=== PATIENT | female | born 1975 | race Caucasian/White ===

== ENCOUNTER 2016-11-19 08:32 | Emergency (ER) | payer MEDICAID ==
[2016-11-19 08:43] VITALS: BP 130/63; PULSE 78; TEMP 98.4; BMI 31.4
--- NOTE | 2016-11-19 08:59 | EDPRACDOC ---
- General Information Chief Complaint: Flu-Like Symptoms Stated Complaint: CONGESTION/ BODY ACHES Time Seen by Provider: 11/19/16 08:48 Information Source: Patient Mode Of Arrival: Car Allergies/Adverse Reactions: Allergies Allergy/AdvReac Type Severity Reaction Status Date / Time No Known Allergies Allergy Verified 11/19/16 08:43 - History of Present Illness Onset: FRIDAY Current Symptoms: Reports: Cough, Nasal Symptoms, Myalgia, Nausea, Vomiting (X1) Shortness of Breath: Mild Cough: Reports: Non-productive Rhinorrhea: Reports: Clear Fever Severity/Quality: Reports: subjective Oral Intake: Decreased Urinary Output: Normal Relevant History of: None Associated Signs & Symptoms:: Reports: Cough, Fever, Nasal Symptoms, Nausea, Vomiting, Myalgia, Other (SINUS PAIN AND PRESSURE). Denies: Diarrhea ED Past Medical History - History Reviewed Yes Nurses notes reviewed and agree except as marked No Past Medical History: Yes Patient has no past medical history - Patient Medical History Surgical History: Reports: Cholecystectomy. Denies: Hysterectomy Additional Past Surgical History: BTL - Social Medical History Smoking Status: Never smoker EDM Review of Systems - Review of Systems ROS Negative Except as Marked: Yes All systems reviewed and were negative except as marked - Physical Exam Constitutional: Alert (Awake), No apparent distress Oriented to: Time, Person, Place Last recorded Vital Signs: Last Vital Signs Temp 98.4 F 11/19/16 08:39 Pulse 78 11/19/16 08:39 Resp 18 11/19/16 08:39 BP 130/63 11/19/16 08:39 Pulse Ox 98 11/19/16 08:39 Oxygen Pulse Oxygen Saturation 98 O2 Device Room Air Oxygen Flow Rate Fraction of Inspired Oxygen ( FIO2) - HEENT Head: Normal ( normocephalic) Eye Exam: Normal (PERRL, EOMI, Sclera white). negative: Pale Conjunctiva, Scleral Icterus Oropharynx: Normal (Pharynx:Moist without exudate,Gums-no swelling). negative: Membranes Dry Tympanic Membrane: Normal ENT EAC: Normal TMJ: Normal Nose: No Symptoms Reported (septum midline) Neck: Normal (FROM, trachea at midline). negative: Edema - Respiratory/Cardiovascular Respiratory: Normal - CTA (BBS clear to auscultation without adventitious sounds ). negative: Accessory Muscle Use, Rales, Rhonchi, Tachypnea, Wheezes Cardiovascular: Normal (RRR without murmur, gallop or rub). negative: Tachycardia - GI Auscultation: Normal (NABS) Palpation: Normal (Soft,No rebound or guarding, non distended) Tenderness: Non tender Rosas's Sign: Negative - Musculoskeletal Back: Normal (Non-Tender) Extremities: Normal (Normal tone, Pulses 2+ No cyanosis or edema, FROM) - Integumentary Skin: Normal, Warm, Dry Lymphatics: Normal (no adenopathy) - Neurologic Memory Impaired: Normal Motor Function: Normal (Normal tone, Pulses 2+ No cyanosis or edema, FROM) Cranial Nerve: Normal (CN II-X11 intact sensation, strength 5/5) Cerebellar: Normal Mood Description: Normal Perception: Normal - Departure Disposition: Home Condition: Stable Final Diagnosis: Viral upper respiratory infection Instructions: Upper Respiratory Infection (ED) Education/Counseling Given To: Patient Education/Counseling Given Regarding: Diagnosis, Treatment, Prognosis Referrals: None,No Provider [Primary Care Provider] - One Week
== END 2016-11-19 09:08 | disposition home or self-care (01) ==
LOC: ED 08:32
DX: J06.9 Acute upper respiratory infection, unspecified (principal)
CPT/HCPCS: 99282